=== PATIENT | male | born 1955 | race Caucasian/White ===

== ENCOUNTER 2025-07-14 10:48 | Emergency (ER) | payer MEDICARE, OTHER, SELFPAY ==
[2025-07-14 11:01] VITALS: BP 179/117
[2025-07-14 11:20] VITALS: BP 164/97
[2025-07-14 11:21] VITALS: BMI 29.1
--- NOTE | 2025-07-14 11:28 | ED.CVA ---
History of Present Illness
<Diego Craig PA-C - Last Filed: 07/14/25 16:00>
General
Chief Complaint: CVA/TIA Symptoms
Source: patient
Exam Limitations: none
Time Seen by Provider: 07/14/25 11:09
Onset of Stroke Symptoms
Onset of symptoms known: No
Time pt last seen normal is known: No
History of Present Illness
History of Present Illness:
69-year-old male with history hypertension hii-[id number] diabetes presents with onset of symptoms at 6 AM this morning upon waking up of which he noticed tingling in his left hand weakness in his left foot and numbness to the left side of
his face. He also notes he is bumping into things on the left side. He denies any obvious visual defect or double vision. He denies any significant pain however he does note over the past 3 days he has been having difficulty urinating and
overnight last night he had rigors. No other complaint
Past History
<Diego Craig PA-C - Last Filed: 07/14/25 16:00>
Past History
ED Past Medical History: NIDDM and Other (gout)
Social History
Personal:
Living: with family
Employment: Employed
Phy Exam
<NICOLASA Mcintosh Last Filed: 07/14/25 16:00>
Physical Exam
Physical Exam:
General: Well-appearing male no acute respiratory distress
HEENT: Normal cephalic atraumatic
Heart: Regular rate and rhythm
Lungs: Clear no wheeze
Neurologic exam: Alert oriented without dysarthria or aphasia. No obvious drift on exam. There is a subtle left facial droop that is intermittently noted throughout the exam extraocular's are intact visual hathaway intact. No signs of neglect.
Finger-nose and jtdp-ax-ytpt intact. No ataxia noted
Skin is warm no rash
Course
<Diego Craig PA-C - Last Filed: 07/14/25 16:00>
Orders/Labs/Results
Orders:
Orders
07/14/25 11:18
CT Head & Neck Angio W/wo IV Urgent
Comment:
Reason For Exam: left sided numbness
07/14/25 11:21
Electrocardiogram (*1) Urgent
Reason for Study: TIA/Stroke
CT Brain Perfusion Urgent
Comment:
Reason For Exam: left sided weakness
EKG- Treatment ONCE
07/14/25 11:40
Complete Blood Count/With Diff Urgent
Comprehensive Metabolic Panel Urgent
07/14/25 12:21
Urinalysis Reflex To Culture Urgent
Date Specimen was Collected: 07/14/25
Time Specimen was Collected: 12:20
Urine Microscopic Reflex Cult Urgent
07/14/25 15:06
COVID-19 Antigen Urgent
Source: Nasal Swab
Influenza A+B Rapid Molecular Urgent
TAZ Source: Nasal Swab
Specimen Description:
Abnormal Lab Results
07/14/25 07/14/25
11:40 12:21
WBC 12.0 H 10^3/uL
(4.8-10.8)
RBC 4.61 L 10^6/uL
(4.70-6.10)
MPV 11.3 H fL
(7.4-10.4)
Abs Immat Gran (auto) 0.1 H 10^3/uL
(0-0.05)
Absolute Neuts (auto) 9.2 H 10^3/uL
(1.4-6.5)
Absolute Monos (auto) 1.0 H 10^3/uL
(0.1-0.6)
Neutrophils % 76.7 H %
(42.2-75.2)
Lymphocytes % 14.0 L %
(20.5-51.1)
Sodium 133 L mmol/L
(135-145)
Glucose 130 H mg/dl
(70-99)
Total Bilirubin 2.4 H mg/dl
(0.2-1.3)
AST 70 H U/L
(17-59)
ALT 55 H U/L
(0-50)
Ur Occult Blood Reflex 1+ A
(Negative)
Urine Bacteria (Reflex) Few A
(Negative)
Urine Albumin (Reflex) 2+ A
(Neg - Trace)
07/14/25 11:40
07/14/25 11:40
Vital Signs
Initial and Last Documented VS:
Initial Vital Signs
Temp Pulse Resp BP Pulse Ox
98.9 F 91 18 179/117 97
07/14/25 11:01 07/14/25 11:01 07/14/25 11:01 07/14/25 11:01 07/14/25 11:01
Last Documented Vital Signs
Temp Pulse Resp BP Pulse Ox
98.9 F 79 24 160/93 97
07/14/25 11:01 07/14/25 13:21 07/14/25 13:21 07/14/25 12:00 07/14/25 13:21
<Janel Mcdonald, DO - Last Filed: 07/14/25 12:34>
Orders/Labs/Results
Orders:
Orders
07/14/25 11:18
CT Head & Neck Angio W/wo IV Urgent
Comment:
Reason For Exam: left sided numbness
07/14/25 11:21
Electrocardiogram (*1) Urgent
Reason for Study: TIA/Stroke
CT Brain Perfusion Urgent
Comment:
Reason For Exam: left sided weakness
EKG- Treatment ONCE
07/14/25 11:40
Complete Blood Count/With Diff Urgent
Comprehensive Metabolic Panel Urgent
07/14/25 12:21
Urinalysis Reflex To Culture Urgent
Date Specimen was Collected: 07/14/25
Time Specimen was Collected: 12:20
Urine Microscopic Reflex Cult Urgent
07/14/25 15:06
COVID-19 Antigen Urgent
Source: Nasal Swab
Influenza A+B Rapid Molecular Urgent
TAZ Source: Nasal Swab
Specimen Description:
Abnormal Lab Results
07/14/25 07/14/25
11:40 12:21
WBC 12.0 H 10^3/uL
(4.8-10.8)
RBC 4.61 L 10^6/uL
(4.70-6.10)
MPV 11.3 H fL
(7.4-10.4)
Abs Immat Gran (auto) 0.1 H 10^3/uL
(0-0.05)
Absolute Neuts (auto) 9.2 H 10^3/uL
(1.4-6.5)
Absolute Monos (auto) 1.0 H 10^3/uL
(0.1-0.6)
Neutrophils % 76.7 H %
(42.2-75.2)
Lymphocytes % 14.0 L %
(20.5-51.1)
Sodium 133 L mmol/L
(135-145)
Glucose 130 H mg/dl
(70-99)
Total Bilirubin 2.4 H mg/dl
(0.2-1.3)
AST 70 H U/L
(17-59)
ALT 55 H U/L
(0-50)
Ur Occult Blood Reflex 1+ A
(Negative)
Urine Bacteria (Reflex) Few A
(Negative)
Urine Albumin (Reflex) 2+ A
(Neg - Trace)
07/14/25 11:40
07/14/25 11:40
Vital Signs
Initial and Last Documented VS:
Initial Vital Signs
Temp Pulse Resp BP Pulse Ox
98.9 F 91 18 179/117 97
07/14/25 11:01 07/14/25 11:01 07/14/25 11:01 07/14/25 11:01 07/14/25 11:01
Last Documented Vital Signs
Temp Pulse Resp BP Pulse Ox
98.9 F 79 24 160/93 97
07/14/25 11:01 07/14/25 13:21 07/14/25 13:21 07/14/25 12:00 07/14/25 13:21
<Diego Craig PA-C - Last Filed: 07/14/25 16:00>
MDM/Problems Addressed
Differential Diagnosis Includes:
Patient with left sided numbness and weakness noticed this AM at 6:00 upon awakening. Consider TIA versus stroke versus return to emergency versus underlying infectious source given the rigors overnight.
Discussed with emergency room attending. Will order CT of the head CT angio of the head and neck as well as CT perfusion study labs pending urinalysis ordered
<Diego Craig PA-C - Last Filed: 07/14/25 16:00>
*Pulse Oximetry
SaO2: 97
Oxygen Mode of Delivery: Room air
Patient hypoxic: no
*Critical Care Note
Total Time (30-74mins, 75-104mins- exclusive of procedures): Not Applicable
<Diego Craig PA-C - Last Filed: 07/14/25 16:00>
Update Note
Update Note:
Workup here negative CT and CTA as well as CT perfusion. Patient symptoms are very subtle at best and objectively have resolved. Discussed with emergency room attending who saw the patient discussed with neurology. At this point no indication for
admission but will start him on aspirin and Plavix for potential TIA and have him follow-up with neurology as an outpatient. COVID and flu test were negative.
ED Attending Note
<Diego Craig PA-C - Last Filed: 07/14/25 16:00>
-
Portions of this chart may have been created with voice recognition software.� Occasional wrong word or��sound alike� substitutions may have occurred due to the inherent limitations of voice recognition software.
<Janel Mcdonald DO - Last Filed: 07/14/25 12:34>
ED Attending Note
Patient seen and examined by attending physician: Yes
I performed the substantive portion of visit, reviewed & personally made and approve the management plan that is documented in note by myself or NANCY.: Yes
I performed a history and physical exam of patient and discussed management with resident, I reviewed resident's note and agree with documented findings and plan of care.: Yes
ED Attending Note:
69-year-old male with history of diabetes and gout presenting to the emergency department for neurologic symptoms. Patient reports that he woke up this morning with concern for numbness and tingling to his left hand. When he started walking, he
felt like he was dragging his left lower extremity. Reports that he woke up at 6 AM, felt fine last evening. Denies significant weakness. Denies any history of stroke. Denies chest pain, difficulty breathing, abdominal pain. Does note that he
has had some urinary frequency and incomplete emptying. Vitals are significant for high blood pressure, however patient was recently started on lisinopril for his blood pressure.
On exam patient resting comfortably, no acute distress. Overall reassuring examination without obvious focal neurologic deficits. Patient with intact strength and sensation bilaterally. Patient ambulated without ataxic gait. Concern for TIA.
For this reason, plan for CT brain imaging and stroke workup. Will also obtain urinalysis given report of urinary symptoms. NIH stroke scale at this time is 0. No indication for TNK
Discharge Plan
Departure
Patient Disposition: Home (Routine Discharge)
Date of Disposition: 07/14/25
Time of Disposition: 15:58
Patient with high blood pressure during this ER visit?: No
Discharge Problem:
Possible TIA
Instructions: Transient Ischemic Attack (DC)
Prescriptions:
New
clopidogrel [Plavix] 75 mg tablet
75 mg PO DAILY Qty: 30 0RF
No Action
metformin 850 MG tablet
850 mg PO BID
allopurinol 300 MG tablet
300 mg PO DAILY
pantoprazole 40 MG tablet,delayed release (DR/EC)
40 mg PO BID Qty: 60 0RF
Referrals:
Maik Luna MD [Active, Neurology]
UNKNOWN - PT DOES,NOT KNOW [Family Provider]
Activity Restrictions/Additional Instructions:
Take Plavix and 81 mg of aspirin daily. Please return here if worse otherwise follow-up with neurology
Interventions
Interventions:
*Risk Screen - Suicide Last Done: 07/14/25 11:01
*General Assessment Last Done: 07/14/25 11:01
*Neglect/Abuse Screening Last Done: 07/14/25 11:01
ED- Pulmonary Assessment Last Done: 07/14/25 12:25
ED- Neurological Assessment Last Done: 07/14/25 12:25
ED- Cardiac Assessment Last Done: 07/14/25 12:25
ED Swallowing Screen Last Done: 07/14/25 12:25
Discharge Date and Time
Print Language: TELUGU
[2025-07-14 11:50] LABS: Hematocrit 41.7 % (39.0-52.0); Hemoglobin 14.1 g/dL (13.0-18.0); Mean Corp Hgb Conc. 33.8 g/dL (33.0-37.0); Mean Corpuscular Volume 90.5 fL (80.0-94.0); Nucleated Red Blood Cells % 0 % (-); Platelet Count 175 10^3/uL (130-400); Red Cell Dist. Width 13.4 % (11.5-14.5)
[2025-07-14 12:00] VITALS: BP 160/93
[2025-07-14 12:08] LABS: ALT (SGPT) 55 U/L (0-50); AST (SGOT) 70 U/L (17-59); Albumin 4.4 g/dl (3.5-5.0); Alkaline Phosphatase 92 U/L (38-126); Blood Urea Nitrogen 14 mg/dl (9-20); Calcium 9.0 mg/dl (8.4-10.2); Carbon Dioxide 28 mmol/L (22-30); Chloride 100 mmol/L (98-107); Estimated Creatinine Clearance 67 ml/min; Glucose 130 mg/dl (70-99); Potassium 4.3 mmol/L (3.5-5.1); Sodium 133 mmol/L (135-145); Total Protein 7.3 g/dl (6.3-8.2); eGFR > 60.00
[2025-07-14 12:36] LABS: Urine Character Clear (Clear)
[2025-07-14 12:46] LABS: Urine Squamous Cell 0-2 /LPF (Few)
[2025-07-14 12:47] LABS: Urine Red Blood Cell 0-2 /HPF (0-2)
[2025-07-14 13:22] VITALS: BP 159/91
[2025-07-14 14:00] VITALS: BP 140/102
[2025-07-14 15:00] VITALS: BP 146/83
[2025-07-14 15:44] LABS: COVID-19 Antigen Negative (Negative)
== END 2025-07-14 16:26 | disposition home or self-care (01) ==
LOC: EMR 10:48
PROVIDERS: Physician Assistant; EMERGENCY PHYSICIAN Student in an Organized Health Care Education/Training Program
DX: R53.1 Weakness (principal); E11.9 Type 2 diabetes mellitus without complications; I10 Essential (primary) hypertension; M10.9 Gout, unspecified; Z79.82 Long term (current) use of aspirin; Z79.02 Long term (current) use of antithrombotics/antiplatelets; Z79.84 Long term (current) use of oral hypoglycemic drugs
CPT/HCPCS: 99284; 0042T; 70496; 70498; 80053; 81003; 81015; 85025; 87502; 87811; 93005; Q9967